=== PATIENT | female | born 1955 | race African-American/Black ===

== ENCOUNTER 2022-04-07 21:56 | Emergency (ER) | payer OTHER ==
[~2022-04-07] VITALS: Ht 157.5 cm; Wt 118.8 kg
[~2022-04-07 21:56] MED LIST: ALLO300T2 PO; ATEN50TA PO; DULO20CA18 PO; FURO20TA4 PO; GABA-529 PO; HYDR25TA PO; MELO-105 PO; SIMV10TA97 PO
[2022-04-07] MEDS ORDERED: ONDANSETRON HCL 4MG/2ML INJ IV STA (23:21)
[2022-04-07] MEDS ORDERED: MORPHINE SULFATE 4 MG/ML CPJ (NOT FOR IM USE) IV STA (23:21)
[2022-04-07 23:41] LABS: BASOPHILS % 1.2 % (0.0-2.0); EOSINOPHILS % 8.7 % (0.0-5.0); HEMATOCRIT. 30.5 % (36.0-48.0); HEMOGLOBIN. 9.5 g/dL (12.0-16.0); LYMPHOCYTES % 11.5 % (20.0-50.0); MEAN CORPUSCULAR HEMOGLOBIN 24.1 pg (28.0-32.0); MEAN CORPUSCULAR VOLUME 77.6 fL (81.0-99.0); MEAN PLATELET VOLUME 8.3 fl (7.4-10.4); MONOCYTES % 8.2 % (2.0-8.0); NEUTROPHILS % 70.4 % (40.0-76.0); PLATELET 341 x1000/uL (130-400); RED BLOOD CELL COUNT 3.93 mill/uL (4.2-5.4); RED CELL DISTRIBUTION WIDTH 20.7 % (11.6-14.6)
[2022-04-07 23:45] LABS: CHLORIDE 108 mEq/L (98-107)
[2022-04-08] MEDS ORDERED: MORPHINE SULFATE 4 MG/ML CPJ (NOT FOR IM USE) IV STA (01:17)
[2022-04-08] MEDS ORDERED: MORPHINE SULFATE 4 MG/ML CPJ (NOT FOR IM USE) IV SCH (04:15)
[2022-04-08] MEDS ORDERED: MORPHINE SULFATE 4 MG/ML CPJ (NOT FOR IM USE) IV ONE (14:30)
[2022-04-08] MEDS ORDERED: GUAIFENESIN 200MG TABLET PO PRN (15:45)
[2022-04-08 17:21] VITALS: BP 152/80
== END 2022-04-08 17:33 | disposition short-term general hospital (02) ==
LOC: ER 21:56
DX: M54.50 Low back pain, unspecified (principal); I10 Essential (primary) hypertension; Z79.899 Other long term (current) drug therapy; Z20.822 Contact with and (suspected) exposure to COVID-19
CPT/HCPCS: 36415; 72132; 80053; 85025; 87426; 96374; 96375; 96376; 99285; C9803; J2270; J2405